=== PATIENT | male | born 1975 | race Caucasian/White ===

== ENCOUNTER 2019-05-06 14:04 | Emergency (ER) | payer MEDICAID ==
[2019-05-06 14:16] VITALS: BP 168/98
[2019-05-06] MEDS ORDERED: cephALEXin 250 MG CAPSULE PO STA (14:21)
--- NOTE | 2019-05-06 14:23 | ED Physician Documentation ---
PD HPI UPPER EXT INJURY - Stated complaint Stated Complaint: R THUMB LAC - Chief complaint Chief Complaint: Laceration - History obtained from History obtained from: Patient - History of Present Illness Location: Right (44-year-old right-handed gentleman who is up-to-date on tetanus was cleaning a knife and it dropped and he reached out forward and cut the base of his right thumb. This was about 18 hours ago. The ulnar side of the right thumb is numb distal to the laceration. 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.) Review of Systems Constitutional: reports: Reviewed and negative Nose: reports: Reviewed and negative Throat: reports: Reviewed and negative PD PAST MEDICAL HISTORY - Present Medications Home Medications: Ambulatory Orders Medication Instructions Recorded Confirmed Cephalexin [Keflex] 500 mg PO Q6H #28 capsule 05/06/19 Hydrocodone/Acetaminophen 1 - 2 each PO Q6H PRN #10 tablet 05/06/19 [Hydrocodon-Acetaminophen 5-325] Lidocaine Patch 5% [Lidoderm Patch] 05/06/19 - Allergies Allergies/Adverse Reactions: Allergies Allergy/AdvReac Type Severity Reaction Status Date / Time No Known Drug Allergies Allergy Verified 05/06/19 14:14 PD ED PE NORMAL - Vitals Vital signs reviewed: Yes - General General: Alert and oriented X 3, No acute distress - Extremities Extremities: Other (There is a 3 cm laceration at the base of the right thumb, ulnar side at the level of the MCP. He has full range of motion but is almost insensate on the ulnar side of the thumb distal to this. Sensation on the other side is excellent. Normal cap refill. No active bleeding. No active signs of infection.) - Neuro Neuro: Alert and oriented X 3, Normal speech Results - Vitals Vitals: Vital Signs - 24 hr 05/06/19 14:11 Heart Rate 110 H Respiratory 18 Rate Blood Pressure 168/98 H O2 Saturation 98 Oxygen O2 Source Room air Procedures - Laceration (location) R thumb Length in cm: 3 Wound type: Linear Neurovascular status: No: Sensory intact Tendon involvement: Tendon intact Anesthesia: Lidocaine 1%, With bicarb Wound Preparation: Irrigated copiously NS Skin layer closure: Nylon, Interrupted, Size #-0 - enter number (4-0), Sutures - enter # (4 ("loose" per hand fellow)) Other: Tetanus UTD Complexity: Simple PD MEDICAL DECISION MAKING - ED course ED course: 44-year-old gentleman, who presents with a dominant hand laceration at the base of the right thumb, in side where would affect his pincer sensation. He had a delayed presentation, the wound is about 18 hours old. We will irrigated and I will place him on antibiotics and wrap it. I will touch base with hand surgery at [facility] to arrange follow-up. Spoke with hand fellow at [facility], [place]; agrees with washout and abx and very loose closure. No splint. Daily soap/water/drsg chg and they will call him for outpt followup in clinic. Departure - Departure Disposition: Home, Self Care Clinical Impression: Digital nerve injury, Laceration Condition: Good Record reviewed to determine appropriate education?: Yes Instructions: ED Laceration All Prescriptions: Cephalexin [Keflex] 500 mg PO Q6H #28 capsule Hydrocodone/Acetaminophen [Hydrocodon-Acetaminophen 5-325] 1 - 2 each PO Q6H PRN #10 tablet PRN Reason: pain Comments: You have a right thumb laceration with apparent nerve injury. I arranged for you to be seen at [facility] by hand surgeon in follow-up. They should call you in the next few days. Return for new or worsening symptoms. After 24 hours you can take the dressing off and wash it with soap and water and keep it covered. Gentle range of motion exercises are fine but do not work heavily with that hand until cleared by the hand surgeon.
[2019-05-06] MEDS ORDERED: BUFFERED LIDOCAINE 10 ML SYRINGE SUBQ STA (14:48)
== END 2019-05-06 15:05 | disposition home or self-care (01) ==
LOC: ED 14:04
DX: S61.011A Laceration without foreign body of right thumb without damage to nail, initial encounter (principal); S64.31XA Injury of digital nerve of right thumb, initial encounter; W26.0XXA Contact with knife, initial encounter; Y93.89 Activity, other specified
CPT/HCPCS: 12002; 99282; 99283; A9270

== ENCOUNTER 2019-08-04 19:05 | Outpatient (CLI) | payer MEDICAID | END 2019-08-04 23:59 | disposition critical access hospital (66) | LOC: EMS 19:05 | PROVIDERS: ATTEND Surgery | DX: M79.672 Pain in left foot (principal); M79.671 Pain in right foot; Z59.0 Homelessness | CPT/HCPCS: A0425; A0429 ==

== ENCOUNTER 2019-08-04 19:23 | Emergency (ER) | payer MEDICAID ==
[2019-08-04 21:48] VITALS: BP 114/65
--- NOTE | 2019-08-04 21:54 | ED Physician Documentation ---
PD HPI LOWER EXT INJURY - Stated complaint Stated Complaint: BLISTERS ON FEET - Chief complaint Chief Complaint: Wound - History obtained from History obtained from: Patient - History of Present Illness PD HPI LOW EXT INJURY LOCATION: Right, Left, Foot Type of injury: Other (walking too much) Where injury occurred: Street Timing - onset: How many days ago (5) Timing - duration: Days (5) Timing - details: Gradual onset, Still present Improved by: Rest Worsened by: Moving, Palpating Associated symptoms: Swelling. No: Weakness, Numbness, Tingling Contributing factors: No: Anticoagulated Similar symptoms before: Diagnosis (blisters) Recently seen: Not recently seen - Additional information Additional information: 44-year-old male who is homeless has been walking excessively he is developed blisters on the bottom of his feet is here now for treatment. He denies any other current illness. Review of Systems Constitutional: denies: Fever Nose: denies: Congestion Throat: denies: Sore throat Respiratory: denies: Dyspnea, Cough GI: denies: Abdominal Swelling, Nausea, Vomiting, Constipation, Diarrhea : denies: Dysuria, Frequency Skin: denies: Rash Musculoskeletal: reports: Extremity pain, Pain with weight bearing. denies: Neck pain, Back pain Neurologic: denies: Generalized weakness, Focal weakness, Numbness PD PAST MEDICAL HISTORY - Past Surgical History Past Surgical History: Yes Ortho: Other - Present Medications Home Medications: Ambulatory Orders Medication Instructions Recorded Confirmed Cephalexin [Keflex] 500 mg PO Q6H #28 capsule 05/06/19 Hydrocodone/Acetaminophen 1 - 2 each PO Q6H PRN #10 tablet 05/06/19 [Hydrocodon-Acetaminophen 5-325] Lidocaine Patch 5% [Lidoderm Patch] 05/06/19 - Allergies Allergies/Adverse Reactions: Allergies Allergy/AdvReac Type Severity Reaction Status Date / Time No Known Drug Allergies Allergy Verified 08/04/19 19:34 - Social History Does the pt smoke?: No Smoking Status: Current every day smoker Does the pt drink ETOH?: No Does the pt have substance abuse?: Yes - Immunizations Immunizations are current?: Yes PD ED PE NORMAL - Vitals Vital signs reviewed: Yes (Tachycardic) - General General: Alert and oriented X 3, No acute distress, Well developed/nourished - HEENT HEENT: Atraumatic, PERRL, EOMI - Respiratory Respiratory: No respiratory distress - Derm Derm: Normal color, Warm and dry, No rash - Extremities Extremities: No deformity, No edema, Other (There are and callus formation to the sole of the feet and the central portion of the distal foot. Bilaterally. There is no evidence of infection.) - Neuro Neuro: [place] 2-12 intact, No motor deficit, No sensory deficit, Normal speech Eye Opening: Spontaneous Motor: Obeys Commands Verbal: Oriented GCS Score: 15 - Psych Psych: Normal mood, Normal affect Results - Vitals Vitals: Vital Signs - 24 hr 08/04/19 08/04/19 19:25 21:47 Temperature 37.1 C Heart Rate 116 H 108 H Respiratory 16 16 Rate Blood Pressure 105/61 114/65 O2 Saturation 98 100 Oxygen O2 Source Room air PD MEDICAL DECISION MAKING - ED course Complexity details: considered differential, d/w patient ED course: 44-year-old male with overuse blisters to his feet bilaterally is given DuoDERM over the top of the blisters and will follow-up as needed. Departure - Departure Disposition: 01 Home, Self Care Clinical Impression: Blister of foot without infection Qualifiers: Encounter type: initial encounter Laterality: unspecified laterality Qualified Code(s): S90.829A - Blister (nonthermal), unspecified foot, initial encounter Condition: Stable Instructions: ED Blister Follow-Up: EVELYN STODDARD MD [Primary Care Provider] - Discharge Date/Time: 08/04/19 22:00
== END 2019-08-04 22:00 | disposition home or self-care (01) ==
LOC: EDUNIT# → ED 19:23
DX: S90.822A Blister (nonthermal), left foot, initial encounter (principal); S90.821A Blister (nonthermal), right foot, initial encounter; F17.200 Nicotine dependence, unspecified, uncomplicated; Z59.0 Homelessness
CPT/HCPCS: 99282; 99283

== ENCOUNTER 2019-09-17 01:16 | Outpatient (CLI) | payer MEDICAID | END 2019-09-17 01:17 | disposition critical access hospital (66) | LOC: EMS 01:16 | PROVIDERS: ATTEND Surgery | DX: M25.572 Pain in left ankle and joints of left foot (principal); W10.1XXA Fall (on)(from) sidewalk curb, initial encounter; Y92.521 Bus station as the place of occurrence of the external cause; Z59.0 Homelessness | CPT/HCPCS: A0425; A0429; A0999 ==

== ENCOUNTER 2019-09-17 01:30 | Emergency (ER) | payer MEDICAID ==
--- NOTE | 2019-09-17 01:35 | ED Physician Documentation ---
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 No: Weakness, Numbness Recently seen: Not recently seen - Additional information Additional information: BIBA, c/o left ankle pain. Patient is homeless and "missed the window" for the [facility], per medic report. At approximately midnight, he stepped on sidewalk curb, causing inversion of left ankle and sudden onset of left ankle pain. Review of Systems Skin: denies: Abrasion (s), Laceration (s) Musculoskeletal: reports: Extremity pain, Joint pain, Pain with weight bearing Neurologic: denies: Focal weakness, Numbness PD PAST MEDICAL HISTORY - Past Medical History Past Medical History: No - Past Surgical History Past Surgical History: Yes Ortho: Other - Present Medications Home Medications: Ambulatory Orders Medication Instructions Recorded Confirmed Hydrocodone/Acetaminophen 1 - 2 each PO Q6H PRN #14 tablet 09/17/19 [Hydrocodon-Acetaminophen 5-325] Ibuprofen [Ibu] 600 mg PO Q6HR PRN #20 tablet 09/17/19 - Allergies Allergies/Adverse Reactions: Allergies Allergy/AdvReac Type Severity Reaction Status Date / Time No Known Drug Allergies Allergy Verified 09/17/19 01:53 - Living Situation Living Arrangement: reports: Homeless - Social History Does the pt smoke?: No Smoking Status: Current every day smoker Does the pt drink ETOH?: No Does the pt have substance abuse?: Yes - Immunizations Immunizations are current?: Yes PD ED PE NORMAL - Vitals Vital signs reviewed: Yes - General General: Alert and oriented X 3, No acute distress, Well developed/nourished - HEENT HEENT: Atraumatic - Derm Derm: Normal color, Warm and dry - Extremities Extremities: No deformity, No edema - Neuro Neuro: Alert and oriented X 3, No motor deficit, No sensory deficit PD ED PE EXPANDED - Extremities Extremities: Tenderness, Limited ROM, Pedal Pulses Present, Sensory intact, Vascular intact, Other (tenderness left ankle, lateral>medial aspects, with decreased ROM due to pain. Also tenderness midfoot, predominantly lateral aspect.) Results - Vitals Vitals: Vital Signs - 24 hr 09/17/19 09/17/19 01:31 03:20 Temperature 36.9 C Heart Rate 102 H 99 Respiratory 18 15 Rate Blood Pressure 114/87 H 135/88 H O2 Saturation 100 99 Oxygen O2 Source Room air - Rads (name of study) left foot xrays Radiology: Prelim report reviewed, See rad report left ankle xrays Radiology: Prelim report reviewed, See rad report PD MEDICAL DECISION MAKING - ED course Complexity details: reviewed results, re-evaluated patient, considered differential, d/w patient ED course: xrays show sequellae of old medial malleolus fracture but also findings s/o tibiotalar subluxation. I discussed this case with Dr. Morin (occupational health nursing director orthopedic surgeon) who recommends crutches, walking boot, and f/u with ortho for reevaluation this week. I discussed this with the patient and explained the xray findings to him in layperson terms. He repeatedly fell asleep during this discussion, and I would provide gentle tactile stimulus to rewaken him. Each time I woke him, I would ask him if he is now awake and following my explanation of his findings and the plan. He would answer in the affirmative, but then fall back asleep as I progressed in the explanation. I indicated he would be discharged with splint and crutches and asked him if he had any questions and he shakes his head to indicate no. When nurse went to discharge patient, he insisted I had not been back in to talk with him. Thus, I again went into room and again reviewed the xray results, the discussion I had with the orthopedic surgeon, and the plan (crutches, boot, f/u with ortho this week). Patient was awake during this review, angry that he is stating 10/10 pain and that ibuprofen wasn't working. I explained that he seemed comfortable enough just 20 minutes earlier to the extent that it was challenging to keep him awake. Nevertheless, he has xray findings that suggest a painful, acute injury might be present and thus I provided percocet take-home and rx for vicodin. Departure - Departure Disposition: 01 Home, Self Care Clinical Impression: Ankle injury Qualifiers: Encounter type: initial encounter Laterality: left Qualified Code(s): S99.912A - Unspecified injury of left ankle, initial encounter Condition: Good Instructions: ED Crutch Walking, ED Sprain Ankle, ED Boot Aircast Walker Follow-Up: Javier Morin MD [Provider Admit Priv/Credential] - Within 1 week Prescriptions: Ibuprofen [Ibu] 600 mg PO Q6HR PRN #20 tablet PRN Reason: Pain Hydrocodone/Acetaminophen [Hydrocodon-Acetaminophen 5-325] 1 - 2 each PO Q6H PRN #14 tablet PRN Reason: pain Comments: Your xrays show widening of the ankle joint; this is called subluxation, and while it does not require further treatment in the emergency department, you should follow up with the orthopedic physician within a week. Subluxation injury can sometimes be associated with injury to ligaments and/or tendons, and sometimes the injury requires further treatment in the outpatient setting. Discharge Date/Time: 09/17/19 04:00
--- NOTE | 2019-09-17 02:35 | XRAY Report ---
Reason: fall, tenderness, pain Procedure Date: 09/17/2019 Accession Number: [id number] / [id number] Procedure: XR - Ankle 3 View LT CPT Code: Final Report FULL RESULT: EXAM: LEFT ANKLE RADIOGRAPHY EXAM DATE: 09/17/2019 02:19 AM. CLINICAL HISTORY: Fall, tenderness, pain. COMPARISON: FOOT 3 VIEW LT 09/17/2019 2:03 AM. TECHNIQUE: 3 views. FINDINGS: Bones: Multiple well-corticated ossicles at the medial malleolus. No acute fracture or bone lesion. Joints: Small tibiotalar joint effusion. 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 Soft Tissues: Soft tissue swelling at the lateral malleolus. 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 Soft tissue swelling. No acute fracture. Sequela of prior injury at the medial malleolus with multiple well-corticated ossicles. [facility]
--- NOTE | 2019-09-17 02:37 | XRAY Report ---
Reason: injury, pain, tenderness Procedure Date: 09/17/2019 Accession Number: [id number] / [id number] Procedure: XR - Foot 3 View LT CPT Code: Final Report FULL RESULT: EXAM: LEFT FOOT RADIOGRAPHY EXAM DATE: 09/17/2019 02:17 AM. CLINICAL HISTORY: Injury, pain, tenderness. Metatarsal pain. COMPARISON: ANKLE 3 VIEW LT 09/17/2019 2:03 AM. TECHNIQUE: 3 views. FINDINGS: Bones: Multiple well-corticated ossicles at the medial malleolus. No fractures or bone lesions. Joints: Degenerative changes at the great toe metatarsal phalangeal joint. No subluxations. Soft Tissues: Soft tissue swelling at the lateral aspect of the fifth metatarsal phalangeal joint. IMPRESSION: Soft tissue swelling. No acute fracture or dislocation. Please see the separate report detailing the findings at the ankle. [facility]
[2019-09-17] MEDS: IBUPROFEN 600 MG TABLET PO STA (03:18)
[2019-09-17 03:21] VITALS: BP 135/88
[2019-09-17] MEDS: oxyCODONE/ACET 5/325 Prepack 4 PO STA (04:00)
== END 2019-09-17 04:00 | disposition home or self-care (01) ==
LOC: EDUNIT# → ED 01:30
DX: S93.02XA Subluxation of left ankle joint, initial encounter (principal); X50.1XXA Overexertion from prolonged static or awkward postures, initial encounter; Y92.480 Sidewalk as the place of occurrence of the external cause; M89.8X7 Other specified disorders of bone, ankle and foot; S82.52XS Displaced fracture of medial malleolus of left tibia, sequela; F17.200 Nicotine dependence, unspecified, uncomplicated; Z59.0 Homelessness
CPT/HCPCS: 99283